=== PATIENT | male | born 1955 | race Caucasian/White ===

== ENCOUNTER 2024-05-10 17:03 | Emergency (ER) | payer MEDICARE, OTHER, SELFPAY ==
[2024-05-10 17:04] VITALS: BMI 30.6
[2024-05-10 17:05] VITALS: BP 130/63
--- NOTE | 2024-05-10 17:10 | ED.GENMED ---
ED Provider Triage
<Kodak Martin PA-C - Last Filed: 05/10/24 17:11>
-
Patient seen by provider in Triage?: Seen in Triage
69-year-old male with history of esophageal cancer currently receiving treatment with Keytruda presents complaining of 2 to 3 days worth of worsening right calf pain. He notes long car trips recent past. He drove down to [place] then the
[place] and back here. He denies chest pain or shortness of breath. No prior history of DVT. He is not currently anticoagulated. Seen at urgent care and sent here
Patient has swollen and painful right calf on exam. Vital signs are stable. Will order ultrasound of right leg to evaluate for DVT
Patient received medical screening exam by healthcare provider through triage. Patient may require further evaluation and/or treatment
History of Present Illness
<Kodak Martin PA-C - Last Filed: 05/10/24 17:11>
General
Chief Complaint: DVT/Possible Blood Clot
Time Seen by Provider: 05/10/24 17:58
<Jaimie Laughlin NP - Last Filed: 05/10/24 21:12>
General
Source: patient
Exam Limitations: none
Nursing documentation reviewed up to this point in time: agreed with
History of Present Illness
History of Present Illness:
69-year-old male with history of NIDDM, gastro-esophageal cancer, bowel resection presents stating he's had mild pain right calf past 2 days, today became suddenly worse while walking, rest improves the pain, pain with walking.
Drove 1300 miles past week to [place] and back and a few other trips.
Under chemo treatment at [facility], q 3 weeks of Keytruda and Herceptin, next infusion in 9 days.
Denies CP, SOB.
Past History
<Jaimie Laughlin NP - Last Filed: 05/10/24 21:12>
Past History
ED Past Medical History: Cancer (gastro-esophageal CA) and NIDDM
ED Past Surgical History: Bowel resection
Review of Systems
<Jaimie Laughlin CUSTOM TAILOR - Last Filed: 05/10/24 21:12>
Review of Systems
Allergies reviewed?: Yes
All Other Systems: ROS reviewed and negative except as documented in HPI and ROS
Constitutional: Denies fever
Respiratory: Denies trouble breathing
Cardiac: Denies chest pain
ABD/GI: Denies abdominal pain or nausea
Musculoskeletal: Reports other (pain right calf)
Skin: Reports no symptoms
Neurological: Reports no symptoms
Phy Exam
<Jaimie Laughlin, CUSTOM TAILOR - Last Filed: 05/10/24 21:12>
Physical Exam
Physical Exam:
GENERAL: No acute distress. A&Ox3.
CONSTITUTIONAL: Afebrile.
EYES: clear, conjunctivae normal
ENMT: moist mucus membranes, Pharynx nl
RESPIRATORY: Regular respirations, nonlabored, lungs clear.
CARDIOVASCULAR: Regular rate and rhythm, no murmurs, no rubs.
GI: Soft, nontender, normal BS
MUSCULOSKELETAL: Moves with ease. Well perfused. Right calf tender medially, no swelling, redness or warmth
SKIN: Warm, dry, pink
PSYCH: Normal mood and affect. Well kept, interactive and appropriate
NEUROLOGIC: Awake, alert and oriented. No focal neurological deficits
Course
<Kodak Martin PA-C - Last Filed: 05/10/24 17:11>
Orders/Labs/Results
Orders:
Orders
05/10/24 17:09
Venous Doppler Lwr Ext Rt [ Perip Venous LOWER Ext RT] Urgent
Comment:
Reason For Exam: pain, swelling
Vital Signs
Initial and Last Documented VS:
Initial Vital Signs
Temp Pulse Resp BP Pulse Ox
97.6 F 85 16 130/63 95
05/10/24 17:05 05/10/24 17:05 05/10/24 17:05 05/10/24 17:05 05/10/24 17:05
Last Documented Vital Signs
Temp Pulse Resp BP Pulse Ox
97.6 F 75 17 122/63 98
05/10/24 17:05 05/10/24 19:00 05/10/24 19:00 05/10/24 19:00 05/10/24 19:00
<Jaimie Laughlin, CUSTOM TAILOR - Last Filed: 05/10/24 21:12>
Orders/Labs/Results
Orders:
Orders
05/10/24 17:09
Venous Doppler Lwr Ext Rt [US Periph Venous LOWER Ext RT] Urgent
Comment:
Reason For Exam: pain, swelling
Vital Signs
Initial and Last Documented VS:
Initial Vital Signs
Temp Pulse Resp BP Pulse Ox
97.6 F 85 16 130/63 95
05/10/24 17:05 05/10/24 17:05 05/10/24 17:05 05/10/24 17:05 05/10/24 17:05
Last Documented Vital Signs
Temp Pulse Resp BP Pulse Ox
97.6 F 75 17 122/63 98
05/10/24 17:05 05/10/24 19:00 05/10/24 19:00 05/10/24 19:00 05/10/24 19:00
<Jaimie Laughlin CUSTOM TAILOR - Last Filed: 05/10/24 21:12>
MDM/Problems Addressed
Differential Diagnosis Includes:
DVT, calf strain
MDM/Problems Addressed:
69-year-old male with history of NIDDM, gastro-esophageal cancer, bowel resection presents stating he's had mild pain right calf past 2 days, today became suddenly worse while walking, rest improves the pain, pain with walking.
Drove 1300 miles past week to [place] and [facility] and a few other trips. Sent here from Urgent Care
Under chemo treatment at [facility], q 3 weeks of Keytruda and Herceptin, next infusion in 9 days.
Denies CP, SOB.
VSS
6:50 PM:
Patient observed ambulating out with normal gait at discharge
<Jaimie Laughlin CUSTOM TAILOR - Last Filed: 05/10/24 21:12>
*Critical Care Note
Total Time (30-74mins, 75-104mins- exclusive of procedures): Not Applicable
ED Attending Note
<Kodak Martin PA-C - Last Filed: 05/10/24 17:11>
-
Portions of this chart may have been created with voice recognition software.� Occasional wrong word or��sound alike� substitutions may have occurred due to the inherent limitations of voice recognition software.
Discharge Plan
Departure
Patient Disposition: Home (Routine Discharge)
Date of Disposition: 05/10/24
Time of Disposition: 18:55
Patient with high blood pressure during this ER visit?: No
Condition: Good
Discharge Problem:
Pain of right calf
Instructions: Muscle and bone pain - Discharge instructions
Referrals:
Abbie Hunter MD [Family Provider] - As needed
Activity Restrictions/Additional Instructions:
As we discussed, your ultrasound is negative for clot.]
Stretching exercises may help
Tylenol as needed for pain.
Interventions
Interventions:
*Risk Screen - Suicide Last Done: 05/10/24 17:05
*General Assessment Last Done: 05/10/24 17:05
*Neglect/Abuse Screening Last Done: 05/10/24 17:22
ED- Fall Risk Assessment Last Done: 05/10/24 17:22
*ED COVID-19 Vaccine History Last Done: 05/10/24 17:05
*Nursing Disposition Last Done: 05/10/24 19:03
ED- Cardiac Assessment Last Done: 05/10/24 17:22
ED- Pulmonary Assessment Last Done: 05/10/24 17:22
ED-Peripheral Vascular Assessment Last Done: 05/10/24 17:22
ED-Skin Assessment Last Done: 05/10/24 17:22
Discharge Date and Time
Discharge Date/Time: 05/10/24 19:03
Print Language: JAMA[place]
[2024-05-10 18:33] VITALS: BP 125/70
[2024-05-10 19:00] VITALS: BP 122/63
== END 2024-05-10 19:03 | disposition home or self-care (01) ==
LOC: EMR 17:03
PROVIDERS: EMERGENCY PHYSICIAN Emergency Medicine; FAMILY PHYSICIAN Internal Medicine
DX: M79.661 Pain in right lower leg (principal); E11.9 Type 2 diabetes mellitus without complications; Z85.01 Personal history of malignant neoplasm of esophagus
CPT/HCPCS: 99284; 93971